=== PATIENT | male | born 1990 | race Caucasian/White ===

== ENCOUNTER 2016-03-21 07:38 | Emergency (ER) | payer SELFPAY ==
[~2016-03-21] VITALS: Ht 170.2 cm; Wt 89.6 kg
[~2016-03-21 07:38] MED LIST: AUGMENTIN875 MG PO; BENADRYL25 MG PO; CITALOPRAM HBR10 MG PO; MOTRIN600 MG PO; PEPCID40 MG PO; PRILOSEC OTC20 MG PO; REGLAN10 MG PO; SUDAFED 12-HOU120 MG PO; ZANTAC150 MG PO
[2016-03-21 08:37] LABS: HEMATOCRIT 38.5 % (38.0-50.0); MCH 29.7 PG (29.0-34.0); MCHC 37.1 G/DL (30.0-36.0); MEAN PLAT.VOLUME 9.6 uM^3 (9.0-12.4); PLATELET COUNT 240 K/uL (156-360); RBC DIS.WIDTH-CV 12.2 % (11.8-14.6); RBC DIS.WIDTH-SD 34.9 % (39-53); RED BLOOD COUNT 4.81 M/uL (4.00-5.50); WHITE BLOOD COUNT 6.4 K/uL (4.1-10.2)
[2016-03-21 09:08] LABS: ANION GAP 9 MEQ/L (2-14); CHLORIDE 105 MEQ/L (99-109); POTASSIUM 4.1 MEQ/L (3.7-5.4); SAMPLE HEMOLYSIS CHECK 0; SAMPLE ICTERIC CHECK 0; SAMPLE LIPEMIA CHECK 0; SODIUM 141 MEQ/L (136-147); TOTAL BILIRUBIN 0.3 MG/DL (0.0-1.0)
[2016-03-21 09:14] LABS: ALKALINE PHOSPHATASE 66 IU/L (3-129); GFR ESTIMATE (CALCULATED) > 59 mL/min/; GLUCOSE 127 mg/dL (70-99); LIPASE 27 U/L (1.0-51.0); UREA NITROGEN (BUN) 12 mg/dL (9-23)
[2016-03-21 09:14] LABS: ADD MIUA? NO; BILIRUBIN NEGATIVE; BLOOD NEGATIVE; COLOR YELLOW ((YELLOW)); GLUCOSE (STRIP) NEGATIVE; KETONES NEGATIVE; LEUKOCYTES NEGATIVE; NITRITE NEGATIVE; PROTEIN (STRIP) NEGATIVE; SPECIFIC GRAVITY 1.019 (1.000-1.030); UCUL ADDED? NO; UROBILINOGEN 0.2 MG/DL (0.2-1.0)
[2016-03-21] MEDS ORDERED: ZOFRAN ODT4 MG PO (09:27)
[2016-03-21] MEDS ORDERED: OMEPRAZOLE40 M1 PO (09:27)
[2016-03-21 09:39] VITALS: BP 133/67
== END 2016-03-21 09:40 | disposition home or self-care (01) ==
LOC: EME 07:38
DX: R11.2 Nausea with vomiting, unspecified (principal); K21.9 Gastro-esophageal reflux disease without esophagitis; J45.909 Unspecified asthma, uncomplicated
CPT/HCPCS: 80053; 81003; 83690; 85027; 99281; 99284

== ENCOUNTER 2016-03-22 20:45 | Emergency (ER) | payer SELFPAY ==
[~2016-03-22 20:45] MED LIST changes: +OMEPRAZOLE40 M1 PO; +ZOFRAN ODT4 MG PO
== END 2016-03-22 21:36 | disposition left against medical advice (07) ==
LOC: EME 20:45
DX: K59.00 Constipation, unspecified (principal); R11.10 Vomiting, unspecified; R10.9 Unspecified abdominal pain; Z53.21 Procedure and treatment not carried out due to patient leaving prior to being seen by health care provider

== ENCOUNTER 2016-04-07 01:55 | Emergency (ER) | payer SELFPAY ==
[~2016-04-07] VITALS: Ht 170.2 cm; Wt 89.1 kg
[2016-04-07 02:53] LABS: CHLORIDE 104 mEq/L (99-109); POTASSIUM 4.1 mEq/L (3.7-5.4); SODIUM 139 mEq/L (136-147)
[2016-04-07 02:55] LABS: GLUCOSE 81 mg/dL (70-99)
[2016-04-07 02:56] LABS: ANION GAP 11 MEQ/L (2-14)
[2016-04-07 02:57] LABS: TOTAL BILIRUBIN 0.3 mg/dL (0.0-1.0)
[2016-04-07 02:59] LABS: ALKALINE PHOSPHATASE 87 IU/L (3-129); GFR ESTIMATE (CALCULATED) > 59 mL/min/
[2016-04-07 03:00] LABS: UREA NITROGEN (BUN) 12 mg/dL (9-23)
[2016-04-07 03:02] LABS: LIPASE 38 U/L (1.0-51.0)
[2016-04-07] MEDS ORDERED: OMEPRAZOLE40 M1 PO (03:15)
[2016-04-07 03:20] VITALS: BP 122/81
[2016-04-07 04:07] LABS: HEMATOCRIT 41.8 % (38.0-50.0); MCH 29.6 PG (29.0-34.0); MCHC 37.8 G/DL (30.0-36.0); MCV 78.3 FL (86-99); MEAN PLAT.VOLUME 9.4 uM^3 (9.0-12.4); PLATELET COUNT 305 K/uL (156-360); RBC DIS.WIDTH-CV 12.4 % (11.8-14.6); RED BLOOD COUNT 5.34 M/uL (4.00-5.50)
[2016-04-07 04:10] LABS: WHITE BLOOD COUNT 9.1 K/uL (4.1-10.2)
[2016-04-07] MEDS ORDERED: ZOFRAN ODT4 MG PO (09:28)
[2016-04-07] MEDS ORDERED: LAMISIL AT12 GM TP (09:31)
== END 2016-04-07 03:20 | disposition home or self-care (01) ==
LOC: EME 01:55
PROVIDERS: Physician Assistant
DX: K21.9 Gastro-esophageal reflux disease without esophagitis (principal); R11.2 Nausea with vomiting, unspecified; J45.909 Unspecified asthma, uncomplicated
CPT/HCPCS: 80053; 83690; 85027; 99281; 99285; C9113; J2405; S0028

== ENCOUNTER 2016-04-07 07:44 | Emergency (ER) | payer SELFPAY ==
[~2016-04-07] VITALS: Ht 170.2 cm; Wt 87.9 kg
[2016-04-07 09:12] LABS: INFLUENZA A VIRAL ANTIGEN NEGATIVE; INFLUENZA B VIRAL ANTIGEN NEGATIVE
[2016-04-07] MEDS ORDERED: ZOFRAN ODT4 MG PO (09:28)
[2016-04-07] MEDS ORDERED: LAMISIL AT12 GM TP (09:31)
[2016-04-07 09:48] VITALS: BP 129/90
== END 2016-04-07 09:51 | disposition home or self-care (01) ==
LOC: EME 07:44
PROVIDERS: Physician Assistant
DX: R11.2 Nausea with vomiting, unspecified (principal); K21.9 Gastro-esophageal reflux disease without esophagitis; S40.861A Insect bite (nonvenomous) of right upper arm, initial encounter; S40.862A Insect bite (nonvenomous) of left upper arm, initial encounter; W57.XXXA Bitten or stung by nonvenomous insect and other nonvenomous arthropods, initial encounter; J45.909 Unspecified asthma, uncomplicated
CPT/HCPCS: 87502; 99281; 99284

== ENCOUNTER 2016-04-10 00:37 | Emergency (ER) | payer SELFPAY ==
[~2016-04-10] VITALS: Ht 170.2 cm; Wt 89.4 kg
[~2016-04-10 00:37] MED LIST changes: +LAMISIL AT12 GM TP
[2016-04-10 01:05] LABS: MCH 29.5 PG (29.0-34.0); MCV 79.7 FL (86-99); MEAN PLAT.VOLUME 9.4 uM^3 (9.0-12.4); PLATELET COUNT 276 K/uL (156-360); RBC DIS.WIDTH-CV 12.3 % (11.8-14.6); RBC DIS.WIDTH-SD 34.8 % (39-53); RED BLOOD COUNT 5.02 M/uL (4.00-5.50); WHITE BLOOD COUNT 8.6 K/uL (4.1-10.2)
[2016-04-10 01:14] LABS: CHLORIDE 106 mEq/L (99-109); POTASSIUM 4.1 mEq/L (3.7-5.4); SODIUM 139 mEq/L (136-147)
[2016-04-10 01:18] LABS: ANION GAP 8 MEQ/L (2-14); TOTAL BILIRUBIN 0.3 mg/dL (0.0-1.0)
[2016-04-10 01:20] LABS: ADD MIUA? NO; BILIRUBIN NEGATIVE; BLOOD NEGATIVE; COLOR YELLOW ((YELLOW)); GLUCOSE (STRIP) NEGATIVE; KETONES NEGATIVE; LEUKOCYTES NEGATIVE; NITRITE NEGATIVE; PROTEIN (STRIP) NEGATIVE; SPECIFIC GRAVITY 1.016 (1.000-1.030); UCUL ADDED? NO; UROBILINOGEN 0.2 MG/DL (0.2-1.0)
[2016-04-10 01:20] LABS: ALKALINE PHOSPHATASE 83 IU/L (3-129); GFR ESTIMATE (CALCULATED) > 59 mL/min/
[2016-04-10 01:21] LABS: GLUCOSE 103 mg/dL (70-99); UREA NITROGEN (BUN) 12 mg/dL (9-23)
[2016-04-10 01:24] LABS: LIPASE 43 U/L (1.0-51.0)
[2016-04-10] MEDS ORDERED: ZANTAC150 MG PO (02:01)
[2016-04-10] MEDS ORDERED: CARAFATE100 MG/ML PO (02:01)
[2016-04-10 02:07] VITALS: BP 138/81
== END 2016-04-10 02:07 | disposition home or self-care (01) ==
LOC: EME 00:37
PROVIDERS: Emergency Medicine
DX: R10.9 Unspecified abdominal pain (principal); R11.2 Nausea with vomiting, unspecified; K29.70 Gastritis, unspecified, without bleeding
CPT/HCPCS: 71010; 76705; 80053; 81003; 83690; 85027; 93005; 99281; 99284; J1885